=== PATIENT | male | born 1965 | race Caucasian/White ===

== ENCOUNTER → 2018-07-19 | Outpatient (CLI) | payer OTHER ==
[~2018-07-19] MED LIST: AMINO ACIDS PO; ASCO10004 PO; ASPI-496 PO; ASPI-650 PO; CELE200C PO; DIAZ10TA PO; ERGO2000 PO; GLUC15006 PO; IBUP-11 PO; MAGN100T PO; OMEP-110 PO; OXYC-307 PO; OXYC20TA42 PO; SAW500CA PO; VITA1TAB3 PO; calcium PO; chondroitin PO; flaxseed oil PO; potassium PO; turmeric PO; zinc PO
== END | disposition home or self-care (01) ==
LOC: CFH 06:37
PROVIDERS: ATTEND Family Medicine
DX: I08.0 Rheumatic disorders of both mitral and aortic valves (principal); R60.0 Localized edema
CPT/HCPCS: 93306

== ENCOUNTER 2019-06-15 13:39 | Outpatient (CLI) | payer OTHER | END 2019-06-15 23:59 | disposition home or self-care (01) | LOC: WOUND 13:39 | PROVIDERS: ATTEND Internal Medicine | DX: T81.32XA Disruption of internal operation (surgical) wound, not elsewhere classified, initial encounter (principal); Z98.890 Other specified postprocedural states; Z96.651 Presence of right artificial knee joint; Y83.8 Other surgical procedures as the cause of abnormal reaction of the patient, or of later complication, without mention of misadventure at the time of the procedure; Y92.89 Other specified places as the place of occurrence of the external cause | CPT/HCPCS: 11043; G0463 ==

== ENCOUNTER 2020-08-15 11:34 | Emergency (ER) | payer OTHER ==
[~2020-08-15] VITALS: Ht 185.4 cm; Wt 111.5 kg
[~2020-08-15 11:34] MED LIST changes: +ASCO100018 PO; -ASCO10004 PO; +ASPI-1026 PO; -ASPI-650 PO; -OXYC-307 PO; +OXYC-380 PO
[2020-08-15 11:37] VITALS: BP 151/83
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
[2020-08-15] MEDS ORDERED: IBUPROFEN 600 MG TABLET PO ONE (13:00)
[2020-08-15] MEDS ORDERED: IBUPROFEN 600 MG TABLET ONE (13:11)
--- NOTE | 2020-08-15 13:30 | NUR ---
PT TO CT
--- NOTE | 2020-08-15 14:18 | NUR ---
ERMD AT BEDSIDE FOR EVALUATION/ DC INSTRUCTIONS REVIEWED
== END 2020-08-15 14:28 | disposition home or self-care (01) ==
LOC: ED 12:12
DX: S16.1XXA Strain of muscle, fascia and tendon at neck level, initial encounter (principal); M50.10 Cervical disc disorder with radiculopathy, unspecified cervical region; I10 Essential (primary) hypertension; V49.49XA Driver injured in collision with other motor vehicles in traffic accident, initial encounter; Y93.89 Activity, other specified; Y92.488 Other paved roadways as the place of occurrence of the external cause; Y99.8 Other external cause status
CPT/HCPCS: 72125; 93005; 99284

== ENCOUNTER 2020-11-24 17:40 | Emergency (ER) | payer OTHER ==
[~2020-11-24] VITALS: Ht 182.9 cm; Wt 100.0 kg
[2020-11-24] MEDS ORDERED: SODIUM CHLORIDE 0.9% 1,000ML IVBOLUS ONE (18:00)
[2020-11-24] MEDS ORDERED: SODIUM CHLORIDE FLUSH 10ML SYR IVF ONE (18:00)
[2020-11-24 18:24] LABS: BASOPHILS % (AUTO) 0 % (0-1); EOSINOPHILS % (AUTO) 0 % (1-7); LYMPHOCYTES % (AUTO) 5 % (22-44); MEAN CORPUSCULAR HEMOGLOBIN 34.3 pg (27.5-34.5); MEAN CORPUSCULAR HGB CONC 34.5 g/dL (33.2-36.2); MEAN PLATELET VOLUME 8.2 fL (7.4-10.4); MONOCYTES % (AUTO) 3 % (2-9); NEUTROPHILS % (AUTO) 92 % (42-75); PLATELET COUNT 278 x10^3/uL (130-400); RED BLOOD COUNT 4.63 x10^6/uL (4.38-5.82); RED CELL DISTRIBUTION WIDTH 12.8 % (9.4-14.8)
[2020-11-24 18:35] LABS: ALBUMIN 3.4 g/dL (3.4-5.0); ANION GAP 5 mmol/L (5-15); CALCIUM 8.4 mg/dL (8.5-10.1); CHLORIDE 111 mmol/L (98-107)
[2020-11-24 18:38] LABS: ALANINE AMINOTRANSFERASE 30 U/L (12-78); ALKALINE PHOSPHATASE 69 U/L (45-117); BILIRUBIN,TOTAL 1.3 mg/dL (0.2-1.0); CREATINE KINASE, TOTAL 110 U/L (39-308); CREATININE 1.38 mg/dL (0.7-1.3); TOTAL PROTEIN 6.7 g/dL (6.4-8.2)
[2020-11-24 18:40] VITALS: BP 134/81
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
[2020-11-24 19:16] LABS: MICROSCOPIC INDICATED
== END 2020-11-24 19:06 | disposition home or self-care (01) ==
LOC: ED 17:53
DX: R55 Syncope and collapse (principal); N28.9 Disorder of kidney and ureter, unspecified; T67.3XXA Heat exhaustion, anhydrotic, initial encounter; X58.XXXA Exposure to other specified factors, initial encounter; Y93.89 Activity, other specified; Y92.89 Other specified places as the place of occurrence of the external cause; Y99.8 Other external cause status
CPT/HCPCS: 36415; 80053; 81001; 82550; 83735; 85025; 99283; J7030